=== PATIENT | female | born 1980 | race Caucasian/White ===

== ENCOUNTER 2021-07-01 18:44 | Emergency (ER) | payer OTHER, SELFPAY ==
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
[2021-07-01 18:54] VITALS: BP 165/103; PULSE 107; RESP 16; TEMP 36.8; O2SAT 100
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
== END 2021-07-01 19:50 | disposition home or self-care (01) ==
PROVIDERS: Emergency Provider Registered Nurse; PCP Internal Medicine
DX: M79.645 Pain in left finger(s) (principal); R07.89 Other chest pain; E11.9 Type 2 diabetes mellitus without complications; E78.00 Pure hypercholesterolemia, unspecified
CPT/HCPCS: 71120; 73140; 99214; G0463

== ENCOUNTER 2023-02-01 19:57 | Emergency (ER) | payer OTHER, SELFPAY ==
[2023-02-01] VITALS (22 sets, daily range): BP systolic 137–180; BP diastolic 94–124; PULSE 91–181; RESP 14–35; TEMP 36.4; O2SAT 97–99
--- NOTE | ~2023-02-01 | CT_ITS ---
EXAMINATION: CTA chest PE protocol DATE: 02/01/2023 22:30 INDICATION: Tachycardia TECHNIQUE: Computed tomography angiography (CTA) of the chest was performed with 100 mL Omnipaque-350 intravenous contrast timed to evaluate the pulmonary arteries. Coronal maximum intensity projection 3D-reconstructions were created by the technologist. The dose-length product (DLP) was 644.86 mGy-cm. Automated exposure control and iterative reconstruction technique were employed. COMPARISON: None. FINDINGS: The pulmonary arteries are well-opacified. No pulmonary embolism is identified. There is mi ld dependent atelectasis. The lungs are free of focal airspace opacities. No pleural effusion or pneu mothorax. No pathologically enlarged thoracic lymph nodes are identified. The heart size is normal. T he liver is diffusely low in attenuation when compared with the spleen, consistent with hepatic steat osis. IMPRESSION: 1. No pulmonary embolism or acute cardiopulmonary abnormality. Reviewed, dictated and finalized at location F.
--- NOTE | 2023-02-01 19:58 | ECG_ITS ---
Measurements Intervals [place] Rate: 181 P: ID: 0 QRS: 67 QRSD: 125 T: 11 QT: 277 QTc: 482 Interpretive Statements SUPRAVENTRICULAR TACHYCARDIA INDETERMINATE AXIS RIGHT BUNDLE BRANCH BLOCK [120+ ms QRS DURATION, UPRIGHT V1, 40+ ms S IN I/aVL/V4/V5/V6] LOW-VOLTAGE QRS IN PRECORDIAL LEADS ABNORMAL ECG NO PREVIOUS ECG AVAILABLE FOR COMPARISON Electronically Signed On 02-02-2023 14:35:15 CDT by Serge Mendes M.D.
[2023-02-01] MEDS: SODIUM CHLORIDE 0.9% IV 1,000 ML 999 ML IV CONT ×2 (20:28→21:38)
[2023-02-01] MEDS: ADENOSINE IV SOLN 6 MG/2 ML VIAL IV PUSH (20:28)
[2023-02-01 20:36] LABS: Basophils Percent Auto 0.3 % (0.2-1.2); Eosinophils Absolute Auto 0.1 K/mm3 (0-0.3); Eosinophils Percent Auto 1.1 % (0-4.4); Hematocrit 47.7 % (37.0-47.0); Hemoglobin 15.9 g/dL (12.0-15.0); Immature Granulocyte Absolute 0.04 K/mm3 (0.00-0.031); Immature Granulocyte Percent A 0.4 % (0-0.5); Lymphocytes Absolute Auto 3.64 K/mm3 (0.9-3.2); Lymphocytes Percent Auto 34.5 % (18.3-44.2); Mean Corpuscular HGB Conc 33.3 g/dl (32-36); Mean Platelet Volume 9.8 fl (7.4-10.4); Monocytes Absolute Auto 0.6 K/mm3 (0.1-0.6); Monocytes Percent Auto 6.1 % (2.6-8.5); Neutrophils Absolute Auto 6.1 K/mm3 (1.3-6.7); Neutrophils Percent Auto 57.6 % (45.5-73.1); Platelet Count Result 432 k/mm3 (150-375); Red Blood Count 5.48 M/mm3 (4.2-5.4); Red Cell Distribution Width 12.1 % (11.5-14.5); White Blood Count 10.5 K/mm3 (4.5-10.0)
--- NOTE | 2023-02-01 20:36 | ECG_ITS ---
Measurements Intervals [place] Rate: 109 P: 47 OR: 154 QRS: 5 QRSD: 133 T: 11 QT: 357 QTc: 481 Interpretive Statements SINUS TACHYCARDIA POSSIBLE LEFT ATRIAL ENLARGEMENT [-0.1mV P WAVE IN V1/V2] RIGHT BUNDLE BRANCH BLOCK [120+ ms QRS DURATION, UPRIGHT V1, 40+ ms S IN I/aVL/V4/V5/V6] LOW-VOLTAGE QRS IN PRECORDIAL LEADS COMPARED TO ECG 02/01/2023 20:04:48 SINUS TACHYCARDIA HAS REPLACED SUPRAVENTRICULAR TACHYCARDIA. Electronically Signed On 02-02-2023 14:35:49 CDT by Serge Mendes M.D.
--- NOTE | 2023-02-01 20:37 | ED.ARRPALP ---
HPI - Arrhythmia/Palpitations General Chief Complaint: Arrhythmia/Palpitations Stated Complaint: Elevated HR Time Seen by Provider: 02/01/23 20:07 Source: patient Limitations: no limitations History of Present Illness HPI narrative: Patient is a 42-year-old female present to the emergency department complaining of palpitations. Patient states she noticed the palpitations around approximately 5 PM today while at rest and they have not resolved prompting her to come in for further evaluation. Patient notes that she did talk to her cousin who has a history of something similar to this and did not tolerate cough she did not have any relief. Patient notes that she tried to blow into a syringe and again the relief. Patient denies any history of this in the past. Patient denies any caffeine use today. Patient denies any new or changed medications. Patient denies any illicit drug use. Patient denies any chest pain, shortness of breath, lightheadedness, hematuria, melena, hematochezia, fever, recent injuries, recent illness, numbness, weakness. Patient was that she just finished her menstrual cycle and she typically does have a heavier period. Patient denies any history of thyroid dysfunction. Related Data Home Medications Medication Instructions Recorded Confirmed atorvastatin 10 mg tablet 07/01/21 metformin 500 mg tablet,extended mg PO 07/01/21 release 24 hr Allergies Allergy/AdvReac Type Severity Reaction Status Date / Time PROCHLORPERAZINE EDISYLATE Allergy Severe JAW SEIZED Uncoded 07/01/21 18:56 UP PROCHLORPERAZINE MALEATE Allergy Severe JAW SEIZED Uncoded 07/01/21 18:56 UP Review of Systems Review of Systems: A 10 system review of systems was completed on the patient and is negative except for what is stated in the HPI. Nursing and ancillary documentation was reviewed. [facility] Past Medical History Medical History (Updated 02/01/23 @ 23:08 by Justo Ramirez DO) Anxiety and depression Diabetes Elevated cholesterol History of sinus problem Surgical History Surgical History (Updated 07/01/21 @ 19:16 by Estrellita Costa NP) H/O inguinal hernia repair Hx of cholecystectomy Social History Social History (Updated 07/01/21 @ 19:18 by Estrellita Costa NP) Smoking status: Never smoker Gender identity (if verbalized by the patient): Female Comments At time of signature, I have reviewed and agree with nursing past medical, surgical, social and family history unless otherwise noted. Please see the nursing chart for further information. There is no relevant family history pertinent to the presenting complaint. Exam Narrative: CONST: No acute distress. Well nourished. HENMT: Head is normocephalic and atraumatic. Moist mucous membranes. No posterior oropharynx erythema. EYES: No conjunctival icterus, injection, or pallor. PERRL. NECK: No meningeal signs. No palpable thyromegaly or thyroid tenderness palpation. No carotid bruits. RESP: Able to speak in full sentences. Normal respiratory effort. CTAB. CARDIO: Tachycardic rate. Regular rhythm. 2+ DP and radial pulses bilaterally. GI: Nondistended. No tenderness to palpation. Soft. : No CVA tenderness to palpation. SKIN: No rashes or lesions noted on exposed skin. NEURO: Oriented x3. Moves all extremities. EXTREM: No pedal edema. PSYCH: Normal affect. Course Vital Signs Vital signs: Vital Signs Temperature 97.5 F L 02/01/23 20:02 Pulse Rate 181 H 02/01/23 20:02 Respiratory Rate 27 H 02/01/23 20:02 Blood Pressure 171/119 H 02/01/23 20:02 Pulse Oximetry 99 02/01/23 20:02 Oxygen Delivery Room Air 02/01/23 20:02 Temperature 97.5 F L 02/01/23 20:02 Pulse Rate 93 02/01/23 22:01 Respiratory Rate 20 02/01/23 22:01 Blood Pressure 139/95 H 02/01/23 22:01 Pulse Oximetry 98 02/01/23 22:01 Oxygen Delivery Room Air 02/01/23 20:09 MDM - Arrhythmia/Palpitations MDM Narrative Medical
[2023-02-01 20:45] LABS: Alanine Aminotransferase 49 U/L (6-35); Albumin Level 4.6 g/dL (3.5-5.1); Alkaline Phosphatase 88 U/L (38-126); Anion Gap 12 mmol/L (8-16); Aspartate Amino Transferase 34 U/L (14-36); Bilirubin,Total 0.5 mg/dL (0.2-1.3); Blood Urea Nitrogen 13 mg/dL (7-17); Calcium 9.6 mg/dL (8.4-10.2); Carbon Dioxide 25 mmol/L (22-30); Chloride 99 mmol/L (98-107); Estimated CRCL calculation 129 ml/min; Estimated Glomerular Filt Rate > 60; Glucose 413 mg/dL (65-110); Potassium 3.7 mmol/L (3.4-5.0); Sodium 136 mmol/L (137-145)
[2023-02-01] MEDS: METOPROLOL TARTRATE INJ 5 MG/5 ML VIAL IV PUSH (21:39)
== END 2023-02-01 23:36 | disposition home or self-care (01) ==
PROVIDERS: Emergency Provider Student in an Organized Health Care Education/Training Program; PCP Internal Medicine
DX: I47.10 Supraventricular tachycardia, unspecified (principal); E11.9 Type 2 diabetes mellitus without complications
CPT/HCPCS: 36415; 71275; 80053; 83735; 84443; 85025; 93005; 96361; 96374; 96375; 99284; J0153; J7030; Q9967